=== PATIENT | male | born 1970 | race Caucasian/White ===

== ENCOUNTER 2018-06-28 05:54 | Outpatient (CLI) | payer BC ==
[~2018-06-28] VITALS: Ht 188 cm; Wt 129.7 kg
== END 2018-06-28 12:43 | disposition home or self-care (01) ==
LOC: PREOP 05:54
PROVIDERS: ATTEND Surgery
DX: Z01.818 Encounter for other preprocedural examination (principal)

== ENCOUNTER 2018-07-05 07:39 | Day surgery (SDC) | payer BC ==
[~2018-07-05] VITALS: Ht 188 cm; Wt 129.7 kg
[~2018-07-05 07:39] MED LIST: ATEN-147 GT; ATEN50TA PO; CIPR500T78 PO; EPIN0.3P2 IM; HYDR25TA4 PO; PRD50T PO; RNT150T PO
--- OUTSIDE RECORDS SUMMARY | 2018-07-05 07:43 | XMS REPORT | Continuity of Care Document ---
Author Author [facility] Organization [facility] Address Unknown Phone Unavailable Allergies Active Description Code Type Severity Reaction Onset Reported/Identified Relationship to Patient Clinical Status Yes No Known Drug Allergies [id number] Drug Allergy Unknown N/A 06/28/2018 Medications There is no data. Problems Date Dx Coded Attending Type Code Diagnosis Diagnosed By 01/06/2010 Ot 708.9 01/06/2010 Ot 784.2 01/06/2010 Ot 995.3 07/22/2013 MARISOL WHEELER APRN 461.9 SINUSITIS ACUTE 08/07/2013 KEYA CONTRERAS DO Ot 592.0 CALCULUS OF KIDNEY 08/07/2013 KEYA CONTRERAS DO Ot 789.09 ABDOMINAL PAIN, OTHER SPECIFIED SITE 02/07/2015 CATIECLEMENTINA N Ot 275.03 OTHER HEMOCHROMATOSIS 10/30/2015 CATIE, CLEMENTINA N Ot 275.03 02/23/2017 CATIE, CLEMENTINA N Ot 275.03 03/23/2017 CATIE, CLEMENTINA N Ot 275.03 02/05/2018 CAITE, CLEMENTINA N Ot 275.03 02/05/2018 CATIE, CLEMENTINA N Ot 275.03 06/28/2018 CATIECLEMENTINA DORAN Ot 275.03 06/28/2018 ALHAJI COOPER, MG Richardson Ot Z01.818 ENCOUNTER FOR OTHER PREPROCEDURAL EXAMIN 06/30/2018 MG MANE MD Ot Z01.818 ENCOUNTER FOR OTHER PREPROCEDURAL EXAMIN Procedures Code [place] [address] THERAPUTIC INJ SQ/IM 07/22/2013 J1040 DEPO MEDROL 80 MG INJ 07/22/2013 Results There is no data. Encounters ACCT No. Visit Date/Time Discharge Status Pt. Type Provider Facility Loc./Unit Complaint [id number] 06/28/2018 05:54:00 06/28/2018 12:43:00 DIS Outpatient MG MANE MD [facility] PREOP COLONOSCOPY [id number] 02/08/2015 00:52:00 02/08/2015 23:59:59 CLS Preadmit CLEMENTINA HADDAD Sharlene [facility] ONC [id number] 01/30/2015 12:56:00 02/07/2015 00:01:00 DIS Outpatient CATIEMARYANNMARIAN Su [facility] ONC [id number] 08/06/2013 23:40:00 08/07/2013 01:35:00 DIS Emergency DIANE DO KEYA K [facility] ER ABD PAIN [id number] 07/05/2018 09:00:00 PEN Preadmit ALHAJI COOPER, MG Richardson [facility] ENDO SCREENING [id number] 01/06/2010 14:20:00 Document Registration 03/13/15 06/15/2018 07:18:48 06/15/2018 23:59:59 CLS Outpatient Noemi Whittington [id number] 07/22/2013 08:41:00 07/22/2013 23:59:59 CLS Outpatient MARISOL WHEELER APRN
[2018-07-05] MEDS ORDERED: NS IV 500 ML 500 ML ONE (07:47)
[2018-07-05] MEDS ORDERED: NS IV 500 ML 500 ML IV PRN (07:49)
[2018-07-05] MEDS ORDERED: MIDAZOLAM 2 MG/2 ML (VERSED) VIAL IVP ONE (08:00)
[2018-07-05] MEDS ORDERED: fentaNYL INJECTION 100 MCG/2 ML AMP IVP ONE (08:00)
[2018-07-05 08:02] VITALS: BP 111/75
[2018-07-05] MEDS ORDERED: MIDAZOLAM 2 MG/2 ML (VERSED) VIAL ONE ×3 (09:11)
[2018-07-05] MEDS ORDERED: fentaNYL INJECTION 100 MCG/2 ML AMP ONE (09:11)
--- NOTE | 2018-07-05 09:24 | History & Physicial ---
History of Present Illness History of Present Illness Reason for visit/HPI To undergo screening colonoscopy. No family history of polyps and colon cancer. Date of Admission 07/05/18 Date Seen by a Provider: Jul 05, 2018 Time Seen by a Provider: 08:45 I consulted on this patient on 07/05/18 09:22 Attending Physician Mg Ward MD Admitting Physician Noemi Whittington DO Consult Allergies and Home Medications Allergies Coded Allergies: No Known Drug Allergies (Unverified , 06/28/18) Home Medications Atenolol 50 Mg Tablet, 50 MG PO DAILY, (Reported) Hydrochlorothiazide 25 Mg Tablet, 25 MG PO DAILY, (Reported) Patient Home Medication List Home Medication List Reviewed: Yes Past Eknstzl-Fvriex-Kjapaq Hx Patient Social History Marrital Status: Employed/Student: employed Alcohol Use: Rarely Uses Recreational Drug Use: No Smoking Status: Former Smoker Former Smoker, Quit: Jun 28, 1998 Type Used: Smokeless Tobacco 2nd Hand Smoke Exposure: Yes Recent Foreign Travel: No Contact w/other who traveled: No Recent Hopitalizations: No Recent Infectious Disease Expo: No Immunizations Up To Date Date of Influenza Vaccine: Feb 15, 2018 Seasonal Allergies Seasonal Allergies: No Surgeries Yes Appendectomy, Tonsillectomy Respiratory No Cardiovascular Yes Hypertension Neurological No Reproductive System Sexually Transmitted Disease: No HIV/AIDS: No Genitourinary Yes Kidney Stones Gastrointestinal No Musculoskeletal No Endocrine History of Endocrine Disorders: No HEENT History of HEENT Disorders: Yes (READING GLASSES) Loss of Vision: Bilateral Hearing Impairment: Denies Cancer No Psychosocial History of Psychiatric Problem: No Integumentary History of Skin or Integumenta: No Blood Transfusions History of Blood Disorders: No Adverse Reaction to a Blood Tr: No (N/A) Review of Systems Constitutional: no symptoms reported EENTM: no symptoms reported Respiratory: no symptoms reported Cardiovascular: no symptoms reported Gastrointestinal: no symptoms reported Genitourinary: no symptoms reported Musculoskeletal: no symptoms reported Skin: no symptoms reported Psychiatric/Neurological: No Symptoms Reported Physical Exam Vital Signs Vital Signs - First Documented 07/05/18 08:02 Temp 97.3 Pulse 55 Resp 16 B/P (MAP) 111/75 (87) Pulse Ox 95 O2 Delivery Room Air Capillary Refill : Height, Weight, BMI Height: 6'2.00" Weight: 286lbs. 0.0oz. 129.359270sr; 36.7 BMI Method:Stated General Appearance: No Apparent Distress Neck: Normal Inspection Respiratory: Lungs Clear Cardiovascular: Regular Rate, Rhythm Gastrointestinal: Non Tender, Soft Rectal: Deferred Neurologic/Psychiatric: Alert, Oriented x3 Skin: Warm/Dry Assessment/Plan Assessment and Plan gentleman to undergo screening colonoscopy. Discussed in detail. Admission Diagnosis Admission Status: Other (Outpt Proc) MG WARD MD Jul 05, 2018 09:24
--- NOTE | 2018-07-05 09:24 | Conscious Sedation/ASA ---
Conscious Sedation Pre-Proced Time 09:24 ASA Score 2 For ASA 3 and 4: Consider anesthesia and medical clearance. Also, for patients with a history of failed moderate sedation consider anesthesia. Airway Lungs Heart ASA score ASA 1: a normal healthy patient ASA 2: a patient with a mild systemic disease (mid diabetes, controlled hypertension, obesity ASA 3: a patient with a severe systemic disease that limits activity (angina , COPD, prior Myocardial infarction) ASA 4: a patient with an incapacitating disease that is a constant threat to life (CHF, renal failure) ASA 5: a moribund patient not expected to survive 24 hrs. (ruptured aneurysm) ASA 6: a declared brain- patient whose organs are being harvested. For emergent operations, add the letter E after the classification Mallampati Classification Grade 1 Sedation Plan Discussed options with patient/fam The patient is an appropriate candidate to undergo the planned procedure, sedation, and anesthesia. The patient immediately re-assessed prior to indication. MG MANE MD Jul 05, 2018 09:24
--- NOTE | 2018-07-05 10:06 | Endo Procedure Record ---
Endo Procedure Report Date of Procedure Last Colonoscopy: No Jul 05, 2018 Surgeon (s) MG MANE MD Post Procedure/Op Diagnosis 1.2 mm polyp at the distal rectum 2. 4 mm polyp at the mid sigmoid colon 3. 15 mm polyp at the descending colon 4. 2 polyps, 2 mm each, adjacent to each other, at the cecum Procedure Performed colonoscopy to cecum Snare polypectomy 5 Description of Procedure Anesthesia Type: Conscious Sedation Specimen(s) collected/removed multiple polyps Description of the Procedure indication for the procedure: This gentleman came in for screening colonoscopy. Informed consent was obtained after reviewing the procedure in detail. Description of the procedure: He was placed in left lateral decubitus position and his vital signs were monitored. Conscious sedation was achieved using Versed and fentanyl. Digital rectal examination was unremarkable. the colonoscope was then introduced into the rectum and advanced all the way up to the cecum. The quality of bowel preparation was reasonable. The scope was then withdrawn slowly and the mucosa examined in a systematic fashion. Findings: 1. 2 mm polyp at the distal rectum, there was snared and retrieved 2. 4 mm polyp at this mid sigmoid colon that was snared and retrieved as well 3. 15 mm pedunculated polyp at the descending colon, there was snared and retrieved using a Benson net device 4. 2 polyps, 2 mm each, adjacent to each other, at the cecum. These were snared and retrieved, being sent as one specimen. he tolerated the procedure well and was taken back to the nursing area in a stable condition. Impression: Screening colonoscopy. Multiple polyps varying in size from 2-15 mm excised. Recommend follow-up colonoscopy in one year. Copy Copies To 1: BILL ADAN XAVIER M MD Jul 05, 2018 10:06
--- NOTE | 2018-07-05 10:08 | Discharge Inst-Simple/Standard ---
Discharge Inst-Standard Discharge Medications New, Converted or Re-Newed RX: Other Patient Instructions/Follow Up Plan of Care/Instructions/FU: repeat colonoscopy in one year Activity as Tolerated: Yes Discharge Diet: No Restrictions MG MANE MD Jul 05, 2018 10:08
[2018-07-05 10:10] VITALS: BP 111/67
[2018-07-05 10:40] VITALS: BP 104/64
[2018-07-05 11:10] VITALS: BP 104/64
== END 2018-07-05 11:10 | disposition home or self-care (01) ==
LOC: ENDO 07:39
PROVIDERS: ATTEND Surgery
DX: Z12.11 Encounter for screening for malignant neoplasm of colon (principal); D12.0 Benign neoplasm of cecum; D12.4 Benign neoplasm of descending colon; D12.5 Benign neoplasm of sigmoid colon; D12.8 Benign neoplasm of rectum; I10 Essential (primary) hypertension; Z87.891 Personal history of nicotine dependence; Z87.442 Personal history of urinary calculi; Z79.899 Other long term (current) drug therapy

== ENCOUNTER 2022-02-18 09:04 | Outpatient (RCR) | payer BC | END 2022-03-10 | disposition home or self-care (01) | LOC: ONC 09:04 | PROVIDERS: ATTEND Internal Medicine Hematology & Oncology | DX: E83.110 Hereditary hemochromatosis (principal) | CPT/HCPCS: 99195; G0463; 99204 ==